=== PATIENT | male | born 1985 | race Caucasian/White ===

== ENCOUNTER 2016-12-01 00:34 | Emergency (ER) | payer OTHER ==
[2016-12-01 00:48] VITALS: BP 110/65; TEMP 99.1; BMI 28.6
[2016-12-01 01:19] LABS: BILIRUBIN,URINE 1+ (NEGATIVE); KETONES,URINE Trace (NEGATIVE); LEUKOCYTE ESTERASE ,URINE 3+ (NEGATIVE); NITRITE,URINE Positive (NEGATIVE); PROTEIN,URINE 3+ (NEGATIVE); URINE, BLOOD 3+ (NEGATIVE)
[2016-12-01 01:24] LABS: ADD URINE MICROSCOPIC YES
[2016-12-01 01:25] LABS: BASOPHILS % (AUTO) 0.3 % (0.0-3.0); EOSINOPHILS # (AUTO) 0.3 K/ul (0.0-0.7); EOSINOPHILS % (AUTO) 2.2 % (0.0-7.0); HEMATOCRIT 42.3 % (42.0-52.0); HEMOGLOBIN 15.5 g/dl (14.0-18.0); IMMATURE GRANULOCYTE % (AUTO) 0.9 % (0.0-5.0); LYMPHOCYTES # (AUTO) 1.7 K/uL (0.60-3.4); LYMPHOCYTES % (AUTO) 12.3 (10.0-50.0); MEAN CORPUSCULAR HEMOGLOBIN 30.2 pg (27.0-31.0); MEAN CORPUSCULAR HGB CONC 36.6 (31.8-35.4); MEAN CORPUSCULAR VOLUME 82.3 fl (80.0-94.0); MONOCYTES % (AUTO) 7.4 (0-10); NEUTROPHILS # (AUTO) 10.7 K/ul (2.0-6.9); NEUTROPHILS % (AUTO) 76.9; PLATELET COUNT 205 10^3/uL (140-440); RED BLOOD COUNT 5.14 10^6/ul (4.70-6.10); WHITE BLOOD COUNT 13.91 K/ul (4.2-10.2)
--- NOTE | 2016-12-01 01:25 | CT ---
EXAM: CT scan abdomen pelvis without contrast HISTORY: Hematuria COMPARISON: None. FINDINGS: Contiguous axial images obtained from lung bases to the symphysis pubis without contrast utilizing 3-mm collimation. Sagittal and coronal reconstructions were imaged reviewed.. Benign gra nulomatous changes noted at the right lung base. The gallbladder is fluid filled without cholelithi asis. The liver, pancreas, spleen and adrenal glands have normal unenhanced CT appearance.. The ab dominal aorta is normal in course caliber. The left kidney is morphologically normal.. There is a 4.2 x 4.1 cm cyst upper pole right kidney. There is normal retrocecal appendix. The prostate gland is normal in size.. The bladder is decompressed and not well evaluated.. There is mild perivesica l stranding which may be related to cystitis Bone windows reveals no evidence of lytic or blastic l esions. IMPRESSION: No acute intra-abdominal findings. Simple cyst upper pole right kidney. The bladder is decompressed and not well evaluated.. There is mild perivesical inflammatory changes inferiorly which may be related to cystitis.
--- NOTE | 2016-12-01 01:29 | ED.PDOC ---
General ED Provider: Dr. MERE NELSON-ER Chief Complaint: Urinary Problem Stated Complaint: my belly hurts and i am having blood in my urine Time Seen by Physician: 00:45 Mode of Arrival: Walk-In Information Source: Patient, Family Exam Limitations: No limitations Nursing and Triage Documentation Reviewed and Agree: Yes Complaint Exam - Complaint/Exam Patient Complains of: Reports: Dysuria Onset/Duration: earlier this evening Symptoms Are: Still present Timing: Intermittent Initial Severity: Mild Current Severity: Mild Location of Pain: Reports: Suprapubic Character: Reports: Dull, Bloody urine Aggravating: Reports: None Alleviating: Reports: None Associated Signs and Symptoms: Reports: Hematuria, Dysuria, Abdominal Pain. Denies: Diaphoresis, Back pain, Fever, Constipation, Blood in stool, Rectal pain , Appetite change, Nausea, Vomiting, Penile swelling, Penile discharge, Decreased urine output, Increased urine frequency, Increased thirst, Decreased activity, Lethargy, Scrotal pain, Scrotal swelling Testicular Torsion Risk Factors: Reports: None Surgical Obstruction Risk Factors: Reports: None Abdominal Findings: Present: None Differential Diagnoses: Prostatitis, UTI, Ureteral Calculi Review of Systems - Review Of Systems Constitutional: Reports: No symptoms Eyes: Reports: No symptoms Ears, Nose, Mouth, Throat: Reports: No symptoms Respiratory: Reports: No symptoms Cardiac: Reports: No symptoms GI: Reports: No symptoms : Reports: Dysuria, Hematuria Musculoskeletal: Reports: No symptoms Skin: Reports: No symptoms Neurological: Reports: No symptoms Endocrine: Reports: No symptoms Hematologic/Lymphatic: Reports: No symptoms All Other Systems: Reviewed and Negative Past Medical History - Past Medical History Previously Healthy: Yes Endocrine: Reports: Unknown Cardiovascular: Reports: Unknown Respiratory: Reports: Unknown Hematological: Reports: Unknown Gastrointestinal: Reports: Unknown Genitourinary: Reports: Unknown Neuro/Psych: Reports: Unknown Musculoskeletal: Reports: Unknown Cancer: Reports: Unknown - Surgical History General Surgical History: Reports: Unknown - Family History Family History: Reports: Unknown - Social History Smoking Status: Never smoker Hx Substance Use: No Alcohol Screening: Occasionally Lives: With family - Immunizations Tetanus Shot up to Date: No Physical Exam - Physical Exam Appearance: Well-appearing Eyes: SHARON, EOMI, Conjunctiva clear ENT: Ears normal, Nose normal, Oropharynx normal Neck: Supple Respiratory: Airway patent, Breath sounds clear, Breath sounds equal, Respirations nonlabored Cardiovascular: RRR, Pulses normal, No rub, No murmur GI/: Soft Musculoskeletal: Normal strength, ROM intact, No edema, No calf tenderness Skin: Warm, Dry, Normal color Neurological: Sensation intact, Motor intact, Reflexes intact, Cranial nerves intact, Alert, Oriented Psychiatric: Affect appropriate Interpretation - Radiology Interpretation Radiology Interpretation By: Radiologist Radiology Results: Positive Exam Interpreted: CT Scan ("4.2cm cyst upper pole right kidney") Critical Care Note - Critical Care Note Total Time (mins): 0 Course - Course Hematology/Chemistry: 12/01/16 01:10 12/01/16 01:10 Orders, Labs, Meds: Lab Review 12/01/16 12/01/16 00:50 01:10 WBC 13.91 H RBC 5.14 Hgb 15.5 Hct 42.3 MCV 82.3 MCH 30.2 MCHC 36.6 H RDW Coeff of [place] 12.1 Plt Count 205 Immature Gran % (Auto) 0.9 Neut % (Auto) 76.9 Lymph % (Auto) 12.3 [place] % (Auto) 7.4 Eos % (Auto) 2.2 Baso % (Auto) 0.3 Immature Gran # (Auto) 0.1 Neut # 10.7 H Lymph # 1.7 [place] # 1.0 Eos # 0.3 Baso # 0.0 ESR 8 Sodium 141 Potassium 4.4 Chloride 102 Carbon Dioxide 27 Anion Gap 16.4 BUN 18 Creatinine 1.06 Estimated GFR (MDRD) 83.00 BUN/Creatinine Ratio 16.98 Glucose 106 H Calcium 9.3 Total Bilirubin 0.62 AST 17 ALT 20 Alkaline Phosphatase 65 Total Protein 6.8 Albumin 4.0 Globulin 2.8 Albumin/Globulin Ratio 1.43 Amylase 65 Lipase 17 Urine Color Yellow Urine Clarity Cloudy Urine pH 6.0 Ur Specific [place] >=1.030 Urine Protein 3+ Urine Glucose (UA) Negative Urine Ketones Trace Urine Blood 3+ Urine Nitrite Positive Urine Bilirubin 1+ Urine Urobilinogen 1.0 Ur Leukocyte Esterase 3+ Urine Microscopic RBC 20-30 Urine Microscopic WBC 5-10 Ur Squamous Epith Cells Not present Orders Category Date Time Status AMYLASE Stat LAB 12/01/16 01:10 Completed CBC W/ AUTO DIFF Stat LAB 12/01/16 01:10 Completed COMPREHENSIVE METABOLIC PANEL Stat LAB 12/01/16 01:10 Completed ESR Stat LAB 12/01/16 01:10 Completed LIPASE Stat LAB 12/01/16 01:10 Completed URINALYSIS C & S IF INDICATED Stat LAB 12/01/16 00:50 Completed URINE CULTURE Stat LAB 12/01/16 01:24 Received Levofloxacin [Levaquin] MEDS 12/01/16 01:45 Stat 500 mg PO ONCE STA CT ABDOMEN/PELVIS WO CONTRAST Stat RADS 12/01/16 00:38 Completed Medications Generic Name Dose Route Start Last Admin Trade Name Martha PRN Reason Stop Dose Admin Levofloxacin 500 mg 12/01/16 01:45 Levaquin PO 12/01/16 01:46 ONCE STA Vital Signs: Temp Pulse Resp BP Pulse Ox 12/01/16 00:35 99.1 F 85 18 110/65 99 Departure - Departure Time of Disposition: 01:45 Disposition: HOME SELF-CARE Discharge Problem: Renal cyst Hematuria Qualifiers: Hematuria type: unspecified type Qualifier Code: (R31.9) Hematuria, unspecified Instructions: Hematuria (ED) Condition: Good Pt referred to PMD for follow-up: Yes Additional Instructions: levaquin 500mg q daily #9--fluids--see dr gupta on thursday or thursday to discuss urine culture and cyst on the kidney Allergies/Adverse Reactions: Allergies No Known Drug Allergies Adverse Reaction (Verified 12/01/16 00:43) Home Medications: Ambulatory Orders 1 [No Reported Medications] 12/01/16 Disposition Discussed With: Patient, Family
[2016-12-01 01:40] LABS: ALBUMIN/GLOBULIN RATIO 1.43; ANION GAP 16.4; BILIRUBIN,TOTAL 0.62 mg/dL (0.00-1.20); BUN/CREATININE RATIO 16.98; CALCIUM 9.3 mg/dL (8.2-10.2); CREATININE 1.06 mg/dL (0.60-1.10); POTASSIUM 4.4 mmol/L (3.5-5.1); TOTAL PROTEIN 6.8 g/dL (6.4-8.2)
[2016-12-01 01:43] LABS: ERYTHROCYTE SEDIMENTATION RATE 8 mm/hr (0-15); ESR INTERNAL QC INTERNAL QC VALID
[2016-12-01] MEDS ORDERED: LEVAQUIN PO STA (01:45)
== END 2016-12-01 01:55 | disposition home or self-care (01) ==
LOC: ED 00:34
DX: N28.1 Cyst of kidney, acquired (principal); R31.9 Hematuria, unspecified
CPT/HCPCS: 36415; 80053; 81001; 82150; 83690; 85025; 85651; 87086; 87186; 99283

== ENCOUNTER 2018-10-15 15:17 | Outpatient (CLI) | END 2018-10-15 15:18 | disposition home or self-care (01) | LOC: RHC-LAB 15:17 | PROVIDERS: ATTEND General Practice | DX: R10.9 Unspecified abdominal pain (principal); R19.7 Diarrhea, unspecified | CPT/HCPCS: 36415; 80053; 85025 ==

== ENCOUNTER 2018-10-17 12:06 | Outpatient (CLI) | END 2018-10-17 12:07 | disposition home or self-care (01) | LOC: LAB 12:06 | PROVIDERS: ATTEND General Practice | DX: R10.9 Unspecified abdominal pain (principal); R19.7 Diarrhea, unspecified | CPT/HCPCS: 87015; 87045; 87177; 87899; 89055 ==